=== PATIENT | female | born 1995 | race Caucasian/White ===

== ENCOUNTER 2016-11-22 14:31 | Emergency (ER) | payer OTHER ==
[~2016-11-22] VITALS: Ht 157.5 cm; Wt 67.5 kg
[~2016-11-22 14:31] MED LIST: FERR325C PO; NAPR-260 PO; PRENAT PO
[2016-11-22 14:32] VITALS: Ht 157.5 cm; Wt 67.5 kg
[2016-11-22] MEDS ORDERED: ONDANSETRON (ODT) 4 MG TAB ODT STA (14:55)
[2016-11-22 15:07] LABS: URINE BLOOD (Dip) POC 2+ (NEGATIVE)
[2016-11-22] MEDS ORDERED: CEFTRIAXONE 1 GM INJ IM ONE (15:30)
[2016-11-22] MEDS ORDERED: IBUPROFEN 600 MG TAB PO ONE (15:30)
[2016-11-22] MEDS ORDERED: LIDOCAINE 1% (MDV) 20 ML INJ SC ONE (15:30)
[2016-11-22] MEDS ORDERED: AMOX1TAB10 PO (15:32)
[2016-11-22] MEDS ORDERED: IBUP-1542 PO (15:32)
[2016-11-22] MEDS ORDERED: ONDA8TAB14 PO (15:32)
--- NOTE | 2016-11-22 15:34 | ERD ---
ER Documentation Chief Complaint Date/Time DATE: 11/22/16 TIME: 15:33 Chief Complaint BACK PAIN, NO TRAUMA HPI 21-year-old female presents with right flank pain since yesterday. She maybe has some dysuria as well. She did have nausea vomit one time nonbilious nonbloody. She feels like she may have had a tactile fever but denies any measured fever fever triage. She is has a remote history of kidney infection. ROS All systems reviewed and are negative except as per history of present illness. Medications Home Meds Active Scripts Ondansetron (Ondansetron Odt) 8 Mg Tab.rapdis, 8 MG PO Q6H Y for NAUSEA AND/OR VOMITING, #8 TAB Prov:ELSIE ALEXANDER MD 11/22/16 Ibuprofen* (Motrin*) 600 Mg Tab, 600 MG PO Q6, #20 TAB Prov:ELSIE ALEXANDER MD 11/22/16 Amoxicillin/Potassium Clav (Amox-Clav 875-125 mg Tablet) 875-125 mg Tab, 1 TAB PO BID for 10 Days, #14 TAB Prov:ELSIE ALEXANDER MD 11/22/16 Naproxen* (Naprosyn*) 500 Mg Tablet, 500 MG PO BID Y for PAIN AND/OR INFLAMMATION, #30 TAB Prov:RIGOBERTO LOZANO PA-C 06/30/16 Reported Medications Ferrous Sulfate (Iron) 325 Mg Capsule.er, 325 MG PO, CAP 05/11/16 Multivit/Min/Fol Ac/Iron/Pren* ( S*) 1 Tab Tab, 1 TAB PO DAILY, TAB 05/11/16 Allergies Allergies: Coded Allergies: No Known Allergy (Unverified , 06/16/16) PMhx/Soc History of Surgery: Yes ( x2) Anesthesia Reaction: No Hx Neurological Disorder: No Hx Respiratory Disorders: No Hx Cardiac Disorders: No Hx Psychiatric Problems: No Hx Miscellaneous Medical Probl: No Hx Alcohol Use: No Hx Substance Use: No Hx Tobacco Use: Yes Smoking Status: Current some day smoker Physical Exam Vitals Vital Signs Date Time Temp Pulse Resp B/P Pulse Ox O2 Delivery O2 Flow Rate FiO2 11/22/16 14:32 98.1 89 18 114/78 99 Physical Exam Const: [] Alert, not ill-appearing. Head: Atraumatic Eyes: Normal Conjunctiva ENT: Normal External Ears, Nose and Mouth. Neck: Full range of motion..~ No meningismus. Resp: Clear to auscultation bilaterally Cardio: Regular rate and rhythm, no murmurs Abd: Soft, non tender, non distended. Normal bowel sounds Skin: No petechiae or rashes Back: No midline tenderness. Mild right flank tenderness. Ext: No cyanosis, or edema Neur: Awake and alert Psych: Normal Mood and Affect Results 24 hrs Laboratory Tests Test 11/22/16 15:09 Bedside Urine pH (LAB) 6.0 Bedside Urine Protein (LAB) 1+ Bedside Urine Glucose (UA) Negative Bedside Urine Ketones (LAB) Negative Bedside Urine Blood 2+ Bedside Urine Nitrite (LAB) Positive Bedside Urine Leukocyte Esterase (L 1+ Current Medications Medications (Trade) Dose Ordered Sig/Jaylen Route PRN Reason Start Time Stop Time Status Last Admin Dose Admin Ondansetron HCl (Zofran Odt) 8 mg ONCE STAT ODT 11/22/16 14:55 11/22/16 14:56 DC 11/22/16 15:05 Ibuprofen (Motrin) 600 mg ONCE ONCE PO 11/22/16 15:30 11/22/16 15:31 DC Ceftriaxone Sodium (Rocephin) 1 gm ONCE ONCE IM 11/22/16 15:30 11/22/16 15:31 DC Lidocaine (Xylocaine 1% (Mdv) 20 ml) 20 ml ONCE ONCE SC 11/22/16 15:30 11/22/16 15:31 DC Procedures/MDM HCG is negative. Urine shows positive leukocytes, hemoglobin and nitrites. Urine was sent for culture. Patient was given Zofran 8 mg by mouth, ibuprofen 600 mg of mouth Rocephin 1 g IM. Patient presents with UTI symptoms right flank pain. Patient may have early pyelonephritis without fever or active vomiting. She has no evidence of tachycardia suggestive of sepsis. She should be amenable to outpatient treatment. She will be discharged home the course of Augmentin, Zofran and ibuprofen instructions for clear fluids and instructions return for vomiting, worsening pain, measured fevers, new worsening symptoms with primary doctor this week. The patient was stable with no new complaints during the ER course. Clinically, there is no current evidence to suggest meningitis, sepsis, acute abdomen, pneumonia, acute coronary syndrome, pulmonary embolism, or any other emergent condition appearing to require further evaluation or hospitalization. The patient should certainly return for any new or worsening symptoms per the aftercare instructions. They should otherwise follow-up with her primary care doctor for reevaluation this week. Departure Diagnosis: Primary Impression: Flank pain Additional Impression: UTI (urinary tract infection) Urinary tract infection type: acute cystitis Hematuria presence: without hematuria Qualified Code: N30.00 - Acute cystitis without hematuria Condition: Stable Patient Instructions: Understanding Urinary Tract Infections (UTIs), Flank Pain , Uncertain Cause Additional Instructions: Urine shows infection suggesting possible early kidney infection. Drink plenty of fluids at home. Recheck with primary doctor this week or return for vomiting , persistent fevers over 2 days, worsening pain, new worsening symptoms. ELSIE ALEXANDER MD November 22, 2016 15:34
== END 2016-11-22 16:15 | disposition home or self-care (01) ==
LOC: FTE 14:31
DX: R10.9 Unspecified abdominal pain (principal); N30.00 Acute cystitis without hematuria; R11.2 Nausea with vomiting, unspecified; F17.210 Nicotine dependence, cigarettes, uncomplicated
CPT/HCPCS: 81003; 87086; 96372; J0696; Z7502; Z7610

== ENCOUNTER 2018-02-19 15:59 | Emergency (ER) | END 2018-02-19 20:20 | disposition home or self-care (01) ==